=== PATIENT | male | born 1970 | race Two or more races ===

== ENCOUNTER 2024-06-18 13:26 | Inpatient (IN) | payer OTHER ==
[2024-06-18 14:13] VITALS: BMI 20.2
[2024-06-18] MEDS ORDERED: IBUPROFEN 600 MG TABLET (FP) PO PRN (14:51)
[2024-06-18] MEDS ORDERED: NICOTINE POLACRILEX 2 MG GUM BUC PRN (14:51)
[2024-06-18] MEDS ORDERED: MAG HYDROX/AL HYDROX/SIMETH 30 ML UNIT-DOSE CUP PO PRN (14:51)
[2024-06-18] MEDS ORDERED: BENZONATATE 200 MG CAPSULE PO PRN (14:51)
[2024-06-18] MEDS ORDERED: DICYCLOMINE HCL 10 MG CAPSULE PO PRN (14:51)
[2024-06-18] MEDS ORDERED: IBUPROFEN 400 MG TABLET (FP) PO PRN (14:51)
[2024-06-18] MEDS ORDERED: ALBUTEROL SO4 HFA INHALER IH PRN (14:51)
[2024-06-18] MEDS ORDERED: NICOTINE POLACRILEX 2 MG LOZENGE BC PRN (14:51)
[2024-06-18] MEDS ORDERED: MAGNESIUM HYDROX 2400MG/30ML ORAL SUSPENSION 30 ML CUP PO PRN (14:51)
[2024-06-18] MEDS ORDERED: ACETAMINOPHEN 325 MG TABLET (FP) PO PRN (14:51)
[2024-06-18] MEDS ORDERED: POLYETHYLENE GLYCOL (HEALTHYLAX) 3350 17 GM PACKET PO PRN (14:51)
[2024-06-18] MEDS ORDERED: BISMUTH SUBSALICYLATE 524 MG/30 ML PO PRN (14:51)
[2024-06-18] MEDS ORDERED: BENZOCAINE/MENTHOL (CHLORASEPTIC ) LOZENGE MM PRN (14:51)
[2024-06-18] MEDS ORDERED: ONDANSETRON *ODT* 4 MG TABLET SL PRN (14:51)
[2024-06-18] MEDS ORDERED: LOPERAMIDE HCL 2 MG CAPSULE PO PRN (14:51)
[2024-06-18] MEDS ORDERED: ALBUTEROL SO4 2.5/IPRATROPIUM 0.5 INH SOL 3 ML VIAL.NEB. NEB ONE (15:02)
[2024-06-18] MEDS: ALBUTEROL SO4 2.5/IPRATROPIUM 0.5 INH SOL 3 ML VIAL.NEB. NEB SCH (15:12)
[2024-06-18] MEDS: hydrOXYzine PAMOATE 25 MG CAPSULE (FP) PO PRN (15:57)
[2024-06-18] MEDS: diazePAM 5 MG TABLET PO SCH (18:05)
[2024-06-18] MEDS: MELATONIN 5 MG TABLETS PO SCH (22:46)
[2024-06-18] MEDS: THIAMINE 100 MG TABLET PO SCH (22:46)
[2024-06-18] MEDS: METHOCARBAMOL 500 MG TABLET PO PRN (22:53)
[2024-06-19] MEDS: guaiFENesin 600 MG TABLET.ER (FP) PO PRN (06:21)
[2024-06-19] MEDS: diazePAM 5 MG TABLET PO SCH (06:21)
[2024-06-19 09:27] VITALS: BP 114/69; PULSE 80; RESP 16; TEMP 97.6
[2024-06-19] MEDS: PRENATAL VITAMINS W/ FOLIC ACID TABLET (FP) PO SCH (09:57)
[2024-06-19] MEDS: diazePAM 5 MG TABLET PO PRN (09:57)
[2024-06-19 12:23] LABS: HEMATOCRIT 39.4 % (35.4-49); HEMOGLOBIN 13.2 GM/dL (11.7-16.9); MCH 32.3 pg (25.7-33.7); MCHC 33.6 g/dl (32.0-35.9); MEAN CELL VOLUME 96.2 fl (80-96); MEAN PLT VOLUME 7.4 fl (7.5-11.1); PLATELET COUNT 249 10^3/uL (134-434); RDW 14.6 % (11.9-15.9); WHITE BLOOD COUNT 6.9 K/mm3 (4.0-10.0)
[2024-06-19 12:38] LABS: ALBUMIN 3.9 g/dl (3.4-5.0); CALCIUM 9.4 mg/dL (8.5-10.1)
[2024-06-19 12:41] LABS: BLOOD UREA NITROGEN 14.9 mg/dL (7-18)
[2024-06-19 12:43] LABS: BILIRUBIN,TOTAL 0.4 mg/dL (0.2-1); CREATININE 0.8 mg/dL (0.55-1.3); TOT PROT 7.3 g/dl (6.4-8.2)
[2024-06-19] MEDS ORDERED: OLANZapine 2.5 MG TABLET PO SCH ×2 (22:00)
[2024-06-19] MEDS ORDERED: BENZTROPINE MESYLATE 1 MG TABLET PO SCH (22:00)
[2024-06-20] MEDS ORDERED: diazePAM 5 MG TABLET PO SCH (06:00)
[2024-06-21] MEDS ORDERED: diazePAM 5 MG TABLET PO ONE (06:00)
== END 2024-06-19 16:02 | disposition home or self-care (01) | DRG 774 ==
LOC: YASAS 13:26 → Y3N 15:02
PROVIDERS: ADMIT Allergy & Immunology; ATTEND Family Medicine Addiction Medicine
PROC: HZ2ZZZZ Detoxification Services for Substance Abuse Treatment (ICD-10-PCS; principal; 2024-06-18)
DX: F10.230 Alcohol dependence with withdrawal, uncomplicated (principal); F14.20 Cocaine dependence, uncomplicated; F17.210 Nicotine dependence, cigarettes, uncomplicated; F25.9 Schizoaffective disorder, unspecified; F41.9 Anxiety disorder, unspecified; F32.A Depression, unspecified; J45.909 Unspecified asthma, uncomplicated
CPT/HCPCS: 36415; 80053; 80305; 80307; 85027; 86780; 93005; 93010; 94640